=== PATIENT | male | born 1985 | race Caucasian/White ===

== ENCOUNTER → 2023-04-27 10:27 | Outpatient (REF) | payer OTHER, SELFPAY | LOC: HWRAD 10:27 | PROVIDERS: ATTENDING PHYSICIAN Nurse Practitioner Family | DX: M25.512 Pain in left shoulder (principal); M25.532 Pain in left wrist | CPT/HCPCS: 73030; 73110 ==

== ENCOUNTER → 2023-07-06 12:00 | Outpatient (REF) | payer OTHER, SELFPAY | LOC: HWRAD 12:00 | PROVIDERS: ATTENDING PHYSICIAN Nurse Practitioner Family | DX: D17.5 Benign lipomatous neoplasm of intra-abdominal organs (principal) | CPT/HCPCS: 74177; Q9967 ==

== ENCOUNTER 2024-10-03 09:36 | Emergency (ER) | payer OTHER, SELFPAY ==
[2024-10-03] VITALS (10 sets, daily range): BP systolic 115–137; BP diastolic 66–89; PULSE 49–54; BMI 28.1
[2024-10-03 10:04] LABS: Urine Character Clear (Clear)
--- NOTE | 2024-10-03 11:03 | ED.GENMED ---
History of Present Illness
<Leilani Zhou PA-C - Last Filed: 10/03/24 23:15>
General
Chief Complaint: Fainting Sensation
Source: patient
Exam Limitations: none
Time Seen by Provider: 10/03/24 11:00
Nursing documentation reviewed up to this point in time: agreed with
History of Present Illness
History of Present Illness:
Patient is a 39-year-old male who presents to the emergency department for evaluation of intermittent lightheadedness over the past 10 days now associated with chest pressure. Patient reports intermittent near syncopal events including
lightheadedness occurring sporadically over the past 10 days. He states this is occurring at least once per day. These episodes seem to be random and not associated with any exertional activities.
This morning�around 3 AM he reports waking up and having pressure in the left side of his chest. This was worse when lying flat. He denies any sharp pain or radiation of pain into his back, jaw, shoulder.
Patient denies any associated shortness of breath. He has not any fevers or productive cough. He denies any dizziness or vomiting. He has never actually fainted over the past 2 weeks just has a feeling that he is going to.
Of note�patient is an avid runner/cyclist and states he has been able to maintain his normal exercise routine over the past few weeks.
His bedside states his symptoms seem to be progressively worsening and seems 'off'
Review of Systems
<Leilani Zhou PA-C - Last Filed: 10/03/24 23:15>
Review of Systems
Allergies reviewed?: Yes
All Other Systems: ROS reviewed and negative except as documented in HPI and ROS
Phy Exam
<Leilani Zhou PA-C - Last Filed: 10/03/24 23:15>
Physical Exam
Physical Exam:
Vitals: Bradycardic, otherwise vital signs stable. Afebrile
General: Patient is well appearing, no acute distress
Skin: Warm and dry, no rashes or lesions
Head: Normocephalic, atraumatic
Eyes: Sclera nonicteric.
Throat: Protecting airway
Neck: Normal ROM, no cervical spine tenderness, no meningismus. No JVD
Cardiac: Bradycardia, normal rhythm, no murmurs.
Pulm: Normal respiratory effort, no wheezes, rales, rhonchi heard on exam
Abdomen: No abdominal tenderness.
Extremities: No evidence of cyanosis or edema. Palpable DP pulses bilaterally
Neuro: AAOx3. Grossly intact.
Psychiatric: Normal affect.
Course
<Leilani Zhou PA-C - Last Filed: 10/03/24 23:15>
Orders/Labs/Results
Orders:
Orders
10/03/24
Holter Monitor and Scan*(3) Routine
10/03/24 09:41
ECG [Electrocardiogram (*1)] Urgent
Reason for Study: Chest Pain
EKG- Treatment ONCE
10/03/24 09:49
Urinalysis Reflex To Culture Urgent
Date Specimen was Collected: 10/03/24
Time Specimen was Collected: 09:41
10/03/24 10:50
D-Dimer Urgent
Troponin I Urgent
10/03/24 10:52
Complete Blood Count/With Diff Urgent
Comprehensive Metabolic Panel Urgent
Magnesium Urgent
10/03/24 11:13
Orthostatic VS- Treatment ONCE
0.9% Sodium Chloride 1000 ml [Nss] 1,000 ml IV BOLUS
10/03/24 11:14
CR Chest - 2 Views Urgent
Comment:
Reason For Exam: Left sided chest pressure
10/03/24 12:24
Acetaminophen [Tylenol] 650 mg PO NOW STA
10/03/24 13:12
CARDIOLOGY CONSULT Urgent
Consulting Provider: Krakowski,Gurmeet Geoff
Was physician already notified: Yes
10/03/24 13:52
Echo 2D MMode Color/Doppler Urgent
Reason for Study: near syncope, SOB
Abnormal Lab Results
10/03/24
10:52
RBC 4.17 L 10^6/uL
(4.70-6.10)
MCV 96.6 H fL
(80.0-94.0)
MCH 33.8 H pg
(27.0-31.0)
MPV 11.2 H fL
(7.4-10.4)
Lymphocytes % 17.5 L %
(20.5-51.1)
10/03/24 10:52
10/03/24 10:52
Vital Signs
Initial and Last Documented VS:
Initial Vital Signs
Temp Pulse Resp BP Pulse Ox
98.3 F 63 16 135/79 100
10/03/24 09:42 10/03/24 09:42 10/03/24 09:42 10/03/24 09:42 10/03/24 09:42
Last Documented Vital Signs
Temp Pulse Resp BP Pulse Ox
98.5 F 48 16 116/66 98
10/03/24 10:29 10/03/24 14:45 10/03/24 14:45 10/03/24 14:00 10/03/24 14:45
<Brendon Sales MD - Last Filed: 10/03/24 13:15>
Orders/Labs/Results
Orders:
Orders
10/03/24
Holter Monitor and Scan*(3) Routine
10/03/24 09:41
ECG [Electrocardiogram (*1)] Urgent
Reason for Study: Chest Pain
EKG- Treatment ONCE
10/03/24 09:49
Urinalysis Reflex To Culture Urgent
Date Specimen was Collected: 10/03/24
Time Specimen was Collected: 09:41
10/03/24 10:50
D-Dimer Urgent
Troponin I Urgent
10/03/24 10:52
Complete Blood Count/With Diff Urgent
Comprehensive Metabolic Panel Urgent
Magnesium Urgent
10/03/24 11:13
Orthostatic VS- Treatment ONCE
0.9% Sodium Chloride 1000 ml [Nss] 1,000 ml IV BOLUS
10/03/24 11:14
CR Chest - 2 Views Urgent
Comment:
Reason For Exam: Left sided chest pressure
10/03/24 12:24
Acetaminophen [Tylenol] 650 mg PO NOW STA
10/03/24 13:12
CARDIOLOGY CONSULT Urgent
Consulting Provider: Gurmeet Calderon
Was physician already notified: Yes
10/03/24 13:52
Echo 2D MMode Color/Doppler Urgent
Reason for Study: near syncope, SOB
Abnormal Lab Results
10/03/24
10:52
RBC 4.17 L 10^6/uL
(4.70-6.10)
MCV 96.6 H fL
(80.0-94.0)
MCH 33.8 H pg
(27.0-31.0)
MPV 11.2 H fL
(7.4-10.4)
Lymphocytes % 17.5 L %
(20.5-51.1)
10/03/24 10:52
10/03/24 10:52
Vital Signs
Initial and Last Documented VS:
Initial Vital Signs
Temp Pulse Resp BP Pulse Ox
98.3 F 63 16 135/79 100
10/03/24 09:42 10/03/24 09:42 10/03/24 09:42 10/03/24 09:42 10/03/24 09:42
Last Documented Vital Signs
Temp Pulse Resp BP Pulse Ox
98.5 F 48 16 116/66 98
10/03/24 10:29 10/03/24 14:45 10/03/24 14:45 10/03/24 14:00 10/03/24 14:45
<Leilani Zhou PA-C - Last Filed: 10/03/24 23:15>
MDM/Problems Addressed
Differential Diagnosis Includes:
Not limited to: Acute dehydration, viral illness, symptomatic bradycardia, cardiac arrhythmia, acute coronary syndrome, vasovagal syncope, pericarditis, etc.
MDM/Problems Addressed:
39-year-old male presenting with intermittent near syncopal events over the past 10 days now with left sided chest pressure. No clear exertional component. No associated infectious symptoms.Vitals and physical exam as above.
Differential broad and includes cardiac arrhythmia, acute dehydration, vasovagal syncope, etc. ED plan: check labs, troponin, EKG, chest x-ray. Will give IV fluids and reassess.
Update: labs reviewed. No clinically significant abnormalities. Troponin undetectable � given chest pain occurred greater than six hours ago � feel this is sufficient to rule out acute VA.
EKG reveal sinus bradycardia without any acute ischemic changes.
Symptoms possibly secondary to symptomatic bradycardia however feel less likely given patient�s heart rate typically is in mid 40s � mid 50s. Given persistence of symptoms and non-identifiable cause, will consult cardiology for further evaluation.
Update: Patient seen by cardiology at bedside who ordered stat echo and Holter monitoring. Echo without acute findings. After discussion with cardiology, Dr. Keating they feel patient stable for discharge home. Patient remains hemodynamically
stable in emergency department. Will discharge home with Holter monitor, cardiology follow-up outpatient. Strict return precautions discussed. Patient comfortable with plan.
Chronic conditions affecting care:
N/A
Acute Exacerbation and/or Progression of Chronic Illness:
N/A
<Leilani Zhou PA-C - Last Filed: 10/03/24 23:15>
*Pulse Oximetry
SaO2: 98
Oxygen Mode of Delivery: Room air
Patient hypoxic: no
*EKG
Interpreted by ED Provider?: Yes
EKG Intrepretation Date: 10/03/24
Interpretation: abnormal
Comparison EKG: changes noted
Heart Rate: 44
Rate: bradycardiac
Rhythm: sinus arrhythmia
[place] Var[place]: normal axis
Interval: normal QT interval
QRS Pattern: normal QRS
Ischemia: no ischemia
*Battery Starter Interpretation
Rate: bradycardiac
Interpretation: abnormal
Heart Rate: 38
Rhythm: sinus
*Critical Care Note
Total Time (30-74mins, 75-104mins- exclusive of procedures): Not Applicable
<Leilani Zhou PA-C - Last Filed: 10/03/24 23:15>
Patient Management
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
ED Attending Note
<Leilani Zhou PA-C - Last Filed: 10/03/24 23:15>
-
Portions of this chart may have been created with voice recognition software.� Occasional wrong word or��sound alike� substitutions may have occurred due to the inherent limitations of voice recognition software.
<Brendon Sales MD - Last Filed: 10/03/24 13:15>
ED Attending Note
Patient seen and examined by attending physician: Yes
I performed the substantive portion of visit, reviewed & personally made and approve the management plan that is documented in note by myself or MIRTA.: Yes
ED Attending Note:
Patient with recurring episodes of near syncope over the last week. Some chest tightness this morning. These episodes happen out of the blue. Associated with diaphoresis and nausea at times. No preceding chest pain pleuritic pain. Had some mild
shortness of breath overnight. Patient exercises regularly without issues.
On exam patient is nontoxic. Warm and dry. Perfusing well. Grossly nonfocal. Lungs are clear and equal. Heart bradycardic and regular. Abdomen nontender.
EKG shows sinus bradycardia. Monitor shows sinus bradycardia. Labs and workup unremarkable. Will check D-dimer for completeness.
However with episodes of recurrent near syncope for no obvious reason and he is clearly describing near syncope feel cardiac evaluation is warranted
Discharge Plan
Departure
Patient Disposition: Home (Routine Discharge)
Date of Disposition: 10/03/24
Time of Disposition: 15:06
Patient with high blood pressure during this ER visit?: Yes
Condition: Good
Discharge Problem:
Near syncope
Instructions: Near Fainting (DC), Ambulatory heart monitoring, BLOOD PRESSURE
Prescriptions:
No Action
acetaminophen [Tylenol Extra Strength] 500 MG tablet
500 mg PO PRN PRN (Reason: pain)
ibuprofen 200 MG tablet
400 mg PO PRN PRN (Reason: pain)
Referrals:
Deepa Rasmussen MD [Family Provider, Internal Medicine]
Gurmeet Calderon MD [Active, Cardiology] - Call in 1-3 days for appt
Activity Restrictions/Additional Instructions:
RETURN TO THE EMERGENCY DEPARTMENT FOR ANY PERSISTENT LIGHTHEADEDNESS, EPISODES OF FAINTING, CHEST PAIN OR SHORTNESS OF BREATH, WORSENING IN CURRENT SYMPTOMS, OR ANY OTHER CONCERNS
- As discussed�your lab work and cardiac echocardiogram showed no acute abnormalities today. We are unsure the exact cause of your symptoms today
- You were placed on a Holter monitor which should be kept on for the next 24 hours.
- Please stay well-hydrated.
- Monitor your symptoms very closely and follow-up with cardiology for further evaluation/management and to ensure that your symptoms are improving
Interventions
Interventions:
*Risk Screen - Suicide Last Done: 10/03/24 11:00
*General Assessment Last Done: 10/03/24 10:29
*Neglect/Abuse Screening Last Done: 10/03/24 10:29
*ED- Fall Risk Assessment Last Done: 10/03/24 10:29
*ED COVID-19 Vaccine History Last Done: 10/03/24 10:29
*Nursing Disposition Last Done: 10/03/24 15:30
ED- Cardiac Assessment Last Done: 10/03/24 10:29
ED- Neurological Assessment Last Done: 10/03/24 10:29
Discharge Date and Time
Discharge Date/Time: 10/03/24 15:30
Print Language: MAORI
[2024-10-03 11:19] LABS: Hematocrit 40.3 % (39.0-52.0); Hemoglobin 14.1 g/dL (13.0-18.0); Mean Corp Hgb Conc. 35.0 g/dL (33.0-37.0); Mean Corpuscular Volume 96.6 fL (80.0-94.0); Nucleated Red Blood Cells % 0 % (-); Platelet Count 185 10^3/uL (130-400); Red Cell Dist. Width 11.9 % (11.5-14.5)
[2024-10-03 11:22] LABS: ALT (SGPT) 22 U/L (0-50); AST (SGOT) 28 U/L (17-59); Albumin 4.4 g/dl (3.5-5.0); Alkaline Phosphatase 41 U/L (38-126); Blood Urea Nitrogen 13 mg/dl (9-20); Calcium 9.4 mg/dl (8.4-10.2); Carbon Dioxide 30 mmol/L (22-30); Chloride 105 mmol/L (98-107); Estimated Creatinine Clearance > 125 ml/min; Glucose 97 mg/dl (70-99); Magnesium 1.8 mg/dl (1.6-2.3); Potassium 4.3 mmol/L (3.5-5.1); Sodium 139 mmol/L (135-145); Total Protein 6.9 g/dl (6.3-8.2); eGFR > 60.00
[2024-10-03] MEDS: NSS 1000 IV (11:31)
[2024-10-03 12:12] LABS: Troponin I < 0.012 ng/ml
[2024-10-03] MEDS: TYLENOL 650 MG PO (13:06)
--- NOTE | 2024-10-03 13:22 | CON.CAR ---
Addendum entered and electronically signed by Gurmeet Calderon MD 10/03/24 15:25:
I saw and examined the patient.
The HOT KNIFE CUTTER's note was reviewed and I agree with the note.
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 It is
unclear as the cause of this as it seems to improve with exercise and is typically occurring while sitting.
His echo is normal. He does not necessarily feel his heart racing during these episodes, but does notice somewhat of an increase.
- HM 24 hr
- If unable to capture then 7 day extended
Addendum entered and electronically signed by DORA Mcclelland 10/03/24 15:21:
Consult completed in collaboration with Dr. Calderon. See below.
Original Note:
Consultation
Consultation Request
Date/Time Consultation Requested: 10/03/24 1312
Date/Time Consultation Performed: 10/03/24 1325
Requesting Provider: Leilani Zhou
Performing Provider: Corazon JOHN for Dr. Calderon
Reason for Consultation: near syncope
Medical History
-
Chief Complaint: near syncope
History of Present Illness:
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 Seems to happen at
periods of rest. Not with standing. Orthos neg. He is active with running and lifting weights and has felt fine with that. Last night, he had CP laying on his left side, better laying on right side, worse to palpation. There was also SOB and cough
with laying. This AM, while driving, he felt te symptoms come on, then again at work, so came to the ER. EKG and telemetry show sinus bradycardia.
Past Medical History
Past Medical History: Other (as above)
Social History
Tobacco: Non-Smoker
Alcohol: Occasional
Drug: None
Personal:
Living: With Family
Employment: Employed
Family History
Family History: Reviewed & Not Pertinent
Allergies / Home Medications
Allergy/AdvReac Type Severity Reaction Status Date / Time
No Known Allergies Allergy Unverified 10/03/24 09:41
�Medication �Instructions �Recorded �Confirmed �Type
acetaminophen 500 mg tablet 500 mg PO PRN PRN pain 11/16/19 10/03/24 History
(Tylenol Extra Strength)
ibuprofen 200 mg tablet 400 mg PO PRN PRN pain 11/16/19 10/03/24 History
Review of Systems
-
History Source: Patient
All other systems: Negative unless noted
Respiratory: Cough and Trouble Breathing
Cardiac: Chest Pain and Palpitations
Neurological: Other (light-headed)
Physical Exam
Vital Signs
Temp Pulse Resp BP Pulse Ox
98.5 F 59 17 119/74 100
10/03/24 10:29 10/03/24 13:00 10/03/24 13:00 10/03/24 13:00 10/03/24 13:00
Lab Results
10/03/24 10:52
10/03/24 10:52
Troponin I < 0.012 ng/ml 10/03/24 10:50
Physical Exam
General: Well Developed, Well Nourished and No Apparent Distress
HEENT: Normocephalic and Anicteric
Respiratory: Clear and Non Labored Respirations
Cardiac: Regular Rhythm
Musculoskeletal: No Edema
Skin: Warm and Dry
Neuro: AO x 3
Psych: Calm
Impression / Plan
-
Pre-syncope:
-SB on monitor and EKG- no severe bradycardia or evidence for heart block. Orthos negative. Reports he has been hydrating.
-obtain echo
-if echo unremarkable, plan for 24 hour Holter monitor. Can do longer monitor if needed.
Chest pain:
-worse on left side and with palpation. Not noted on exertion- feels well with exertion. Does not sound cardiac.
SOB/cough:
-last night
-CXR negative, denies any recent illness. D-dimer pending, but no tachycardia.
-check echo
Data Reviewed
-
EKG: Tracing Personally Visualized and interpreted (SB with SA)
Radiology: Report Reviewed by me (CXR: No evidence of active cardiopulmonary disease.)
Medical Tests (Nuc Med, Echo etc): Other (echo ordered)
Labs: Labs Reviewed by me
[2024-10-03 14:27] LABS: D-Dimer 0.33 ug/mlFEU (0.00-0.50)
== END 2024-10-03 15:30 | disposition home or self-care (01) ==
LOC: EMR 09:36
PROVIDERS: Physician Assistant; CONSULT PHYSICIAN Internal Medicine Cardiovascular Disease; EMERGENCY PHYSICIAN Emergency Medicine; FAMILY PHYSICIAN Emergency Medicine
DX: R55 Syncope and collapse (principal)
CPT/HCPCS: 99284; 96360; 71046; 80053; 81003; 83735; 84484; 85025; 85379; 93005; 93225; 93226; 93306